=== PATIENT | female | born 1970 | race Caucasian/White ===

== ENCOUNTER 2016-08-16 16:54 | Emergency (ER) | payer BC ==
[~2016-08-16] VITALS: Ht 162.6 cm; Wt 68.0 kg
--- NOTE | 2016-08-16 17:10 | NUR ---
SAV AT BEDSIDE. PT STATES SHE HAD PHENERGAN 50 MG AT HOME LAST AT 1530. PT STATES SHE HAS NOT VOMITED YET & IS NOT DEHYDRATED LIKE SHE HAS BEEN BEFORE WITH MIGRAINES. STATES SHE THINKS SHE WOULD LIKE TO DO IM INJECTIONS TODAY IF POSSIBLE. CL
[2016-08-16] MEDS ORDERED: HYDROmorphone 2 MG/ML (DILAUDID) 1 ML SYRINGE IM ONE (17:25)
[2016-08-16] MEDS ORDERED: LORazepam 2 MG/ML (ATIVAN) 1 ML VIAL IM ONE (17:25)
[2016-08-16] MEDS ORDERED: PROMETHAZINE 25 MG/ML (PHENERGAN) 1 ML VIAL IM ONE (17:25)
[2016-08-16 18:56] VITALS: BP 106/64
== END 2016-08-16 18:20 | disposition home or self-care (01) ==
LOC: ED 16:55
DX: G43.909 Migraine, unspecified, not intractable, without status migrainosus (principal)
CPT/HCPCS: 96372; 99283; J1170; J2060; J2550; 99282